=== PATIENT | female | born 1940 | race Caucasian/White ===

== ENCOUNTER 2017-02-02 20:59 | Inpatient (IN) | payer MEDICAID ==
[~2017-02-02] VITALS: Ht 165.1 cm; Wt 62.4 kg
[~2017-02-02 20:59] MED LIST: DIG125 PO; GOOD SENSE ASPI81 M3 PO; IMDUR ER30 MG PO; METOPROLOL TART25 M1; NIT0.4 SL; SIMVASTATIN10 M1; WARFARIN SODIUM3 M1 PO; ZES10 PO
[2017-02-03 00:06] LABS: microscopic required? YES; urine erythrocyte NEGATIVE (NEGATIVE)
[2017-02-03 00:20] LABS: BASOPHIL % 0.6 % (0-2); PLATELET COUNT 291 x10^3mcL (130-400); RED CELL DISTRIBUTION WIDTH 13.7 % (11.5-14.5)
[2017-02-03 00:27] LABS: CALCIUM 9.3 mg/dL (8.5-10.1); CARBON DIOXIDE 28.6 mmol/L (21-32); CHLORIDE SERUM 104 mmol/L (98-107); CREATININE SERUM 1.1 mg/dL (0.6-1.0); GLUCOSE SERUM 112 mg/dL (74-106); POTASSIUM SERUM 4.8 mmol/L (3.5-5.1); SODIUM SERUM 140 mmol/L (136-145)
[2017-02-03 00:39] LABS: ALBUMIN 3.6 g/dL (3.4-5.0); ALKALINE PHOSPHATASE 161 U/L (46-116); ALT/SGPT 48 U/L (14-59); AST/SGOT 52 U/L (15-37); BILIRUBIN TOTAL 0.6 mg/dL (0.20-1.00)
[2017-02-03 00:41] LABS: C REACTIVE PROTEIN < 0.2 mg/dL (<=0.9); TOTAL PROTEIN, SERUM 8.3 g/dL (6.4-8.2)
[2017-02-03 01:05] LABS: FREE T4 1.09 ng/dL (0.76-1.46); T3 TOTAL 1.28 ng/mL; T4(THYROXINE) 9.3 ug/dL (4.7-13.3)
[2017-02-03 01:14] LABS: CK-MB 1.2 ng/mL (0-3.6)
[2017-02-03] MEDS ORDERED: CLARITIN10 MG PO (01:27)
[2017-02-03] MEDS ORDERED: OMEPRAZOLE40 M1 PO (01:27)
[2017-02-03] MEDS ORDERED: PEPCID20 MG PO (01:28)
[2017-02-03] MEDS ORDERED: GLYCOPYRROLATE1 M1 PO (01:29)
[2017-02-03 01:34] LABS: ERYTHROCYTE SED RATE 51 mm/hr (0-30)
[2017-02-03 02:19] VITALS: BP 165/83
[2017-02-03 02:43] LABS: CHOLESTEROL/HDL RATIO 2.5; MAGNESIUM 2.4 mg/dL (1.8-2.4); PHOSPHOROUS 4.2 mg/dL (2.5-4.9)
[2017-02-03 04:56] VITALS: BP 135/69
[2017-02-03 14:17] VITALS: BP 141/69
[2017-02-03 18:00] VITALS: BP 165/75
[2017-02-03 21:35] VITALS: BP 129/63
[2017-02-04 05:49] VITALS: BP 136/67
[2017-02-04 07:07] LABS: BASOPHIL % 0.8 % (0-2); PLATELET COUNT 237 x10^3mcL (130-400); RED CELL DISTRIBUTION WIDTH 13.8 % (11.5-14.5)
[2017-02-04 07:18] LABS: CALCIUM 8.8 mg/dL (8.5-10.1); CHLORIDE SERUM 108 mmol/L (98-107); GLUCOSE SERUM 87 mg/dL (74-106); POTASSIUM SERUM 4.7 mmol/L (3.5-5.1); SODIUM SERUM 139 mmol/L (136-145)
[2017-02-04 17:54] VITALS: BP 137/67
[2017-02-04 21:34] VITALS: BP 153/69
[2017-02-05 05:55] VITALS: BP 130/55
[2017-02-05 07:37] LABS: BASOPHIL % 0.6 % (0-2); PLATELET COUNT 250 x10^3mcL (130-400); RED CELL DISTRIBUTION WIDTH 14.1 % (11.5-14.5)
[2017-02-05 08:15] VITALS: BP 147/60
[2017-02-05 08:18] LABS: ALBUMIN 3.4 g/dL (3.4-5.0); ALKALINE PHOSPHATASE 183 U/L (46-116); ALT/SGPT 50 U/L (14-59); AST/SGOT 62 U/L (15-37); BILIRUBIN DIRECT 0.25 mg/dL (0.0-0.2); BILIRUBIN TOTAL 0.99 mg/dL (0.20-1.00); CALCIUM 9.3 mg/dL (8.5-10.1); CARBON DIOXIDE 22.3 mmol/L (21-32); CHLORIDE SERUM 109 mmol/L (98-107); GAMMA GLUTAMYL TRANSPEPTIDASE 727 U/L (5-85); GLUCOSE SERUM 85 mg/dL (74-106); MAGNESIUM 2.1 mg/dL (1.8-2.4); PHOSPHOROUS 3.7 mg/dL (2.5-4.9); SODIUM SERUM 141 mmol/L (136-145); TOTAL PROTEIN, SERUM 8.2 g/dL (6.4-8.2)
[2017-02-05 17:03] VITALS: BP 119/62
== END 2017-02-05 17:55 | disposition home or self-care (01) | DRG 247 ==
LOC: ED 20:59 → DU 02-03 01:17 → MU 02-03 01:17 → DU 02-03 02:04 → MU 02-03 09:37
PROVIDERS: Specialist; ADMIT Family Medicine
PROC: 0DJD8ZZ Inspection of Lower Intestinal Tract, Via Natural or Artificial Opening Endoscopic (ICD-10-PCS; principal; 2017-02-04)
DX: K56.609 Unspecified intestinal obstruction, unspecified as to partial versus complete obstruction (principal); N17.0 Acute kidney failure with tubular necrosis; D68.69 Other thrombophilia; R73.03 Prediabetes; E02 Subclinical iodine-deficiency hypothyroidism; K57.30 Diverticulosis of large intestine without perforation or abscess without bleeding; K44.9 Diaphragmatic hernia without obstruction or gangrene; K64.8 Other hemorrhoids; Z96.641 Presence of right artificial hip joint; Z79.82 Long term (current) use of aspirin; Z68.22 Body mass index [BMI] 22.0-22.9, adult; Z95.1 Presence of aortocoronary bypass graft; Z79.01 Long term (current) use of anticoagulants; I70.203 Unspecified atherosclerosis of native arteries of extremities, bilateral legs
CPT/HCPCS: 45378; 82962; 83880; 84439; C9113; J0694; J1200; J1610; J1885; J1956; J2250; J2310; J3010; J3490; J7030; Q0092; Q9967